=== PATIENT | female | born 1970 | race Caucasian/White ===

== ENCOUNTER 2020-02-09 12:36 | Observation (INO) | payer BC ==
[~2020-02-09] VITALS: Ht 154.9 cm; Wt 86.2 kg
[2020-02-09] MEDS ORDERED: HYDROCODONE/ACETAMINOPHEN 10/325 MG TAB ONE (13:35)
[2020-02-09] MEDS ORDERED: CEFTRIAXONE SODIUM 1 GM ONE (15:08)
[2020-02-09] MEDS: SODIUM CHLORIDE 0.9% 1000ML 1,000 ML IV SCH (15:29)
[2020-02-09] MEDS ORDERED: GLUCAGON 1MG KIT 1 MG ML IM PRN (15:30)
[2020-02-09] MEDS ORDERED: ACETAMINOPHEN 325 MG TAB PO PRN (15:30)
[2020-02-09] MEDS ORDERED: DEXTROSE 50%-WATER 50 ML DISP.SYRIN IV PRN (15:30)
[2020-02-09] MEDS ORDERED: HYDRALAZINE HCL 20 MG/ML VIAL IV PRN (15:30)
[2020-02-09] MEDS ORDERED: MORPHINE SULFATE 2 MG/ML 1ML SYG ONE ×2 (15:47→23:32)
[2020-02-09] MEDS: INSULIN HUMULIN R 100 UNIT/ML 3ML SQ SCH ×2 (16:30→21:00)
[2020-02-09] MEDS ORDERED: ACETAMINOPHEN 325 MG TAB ONE (17:31)
[2020-02-09] MEDS ORDERED: INSULIN HUMULIN R 100 UNIT/ML 3ML ONE (17:32)
[2020-02-09 17:55] LABS: BASOPHILS % (AUTO) 0.4 % (0.0-5.0); EOSINOPHILS % (AUTO) 2.3 % (0.0-8.0); HEMATOCRIT 41.4 % (36-48); LYMPHOCYTES % (AUTO) 43.8 % (21.0-51.0); MEAN CORPUSCULAR HEMOGLOBIN 29.2 pg (27.0-33.0); MEAN CORPUSCULAR HGB CONC 33.8 g/dL (32.0-36.0); MEAN CORPUSCULAR VOLUME 86.4 fL (79-99); MONOCYTES % (AUTO) 7.1 % (3.0-13.0); NEUTROPHILS % (AUTO) 46.2 % (40.0-77.0); PLATELET COUNT (AUTO) 320 K/uL (130-400); RED BLOOD CELL COUNT(AUTO) 4.79 MIL/uL (4.00-5.50); WHITE BLOOD COUNT (AUTO) 8.3 K/uL (4.8-10.8)
[2020-02-09 18:02] LABS: POTASSIUM 4.2 mmol/L (3.5-5.1)
[2020-02-09] MEDS: FAMOTIDINE 20MG TAB 20 MG TAB PO SCH (21:00)
[2020-02-09] MEDS: ZOSYN 3.375GM+NS 50ML 50 ML IV SCH (21:00)
[2020-02-10] VITALS (23 sets, daily range): BP systolic 117–158; BP diastolic 67–92
[2020-02-10 04:14] LABS: HEMATOCRIT 37.4 % (36-48); MEAN CORPUSCULAR HEMOGLOBIN 29.7 pg (27.0-33.0); MEAN CORPUSCULAR HGB CONC 34.5 g/dL (32.0-36.0); RED BLOOD CELL COUNT(AUTO) 4.35 MIL/uL (4.00-5.50); WHITE BLOOD COUNT (AUTO) 6.2 K/uL (4.8-10.8)
[2020-02-10 04:30] LABS: CREATININE 0.8 mg/dL (0.5-1.5); POTASSIUM 3.9 mmol/L (3.5-5.1)
[2020-02-10 04:40] LABS: HEMOGLOBIN A1C 8.6 % (4.0-6.0)
[2020-02-10] MEDS: SODIUM CHLORIDE 0.9% 1000ML 1,000 ML IV SCH ×2 (04:49→18:09)
[2020-02-10] MEDS: ZOSYN 3.375GM+NS 50ML 50 ML IV SCH ×3 (05:00→20:52)
[2020-02-10] MEDS: INSULIN HUMULIN R 100 UNIT/ML 3ML SQ SCH ×4 (07:30→20:52)
[2020-02-10] MEDS ORDERED: FAMOTIDINE/PF 20 MG/2 ML VIAL IV ONE (08:20)
[2020-02-10] MEDS: FAMOTIDINE 20MG TAB 20 MG TAB PO SCH ×2 (09:00→20:52)
[2020-02-10] MEDS ORDERED: ZOSYN 3.375GM+NS 50ML 50 ML IV ONE (09:03)
[2020-02-10] MEDS ORDERED: GEMF600T5 PO (09:51)
[2020-02-10] MEDS ORDERED: ATOR40TA69 PO (09:51)
[2020-02-10] MEDS ORDERED: GLIP10TA9 PO (09:51)
[2020-02-10] MEDS ORDERED: LISI10TA7 PO (09:51)
[2020-02-10] MEDS ORDERED: METF-446 PO (09:51)
--- NOTE | 2020-02-10 10:15 | NUR ---
PT HERE FORM ER.. NO ACUTE DISTRESS. CONSENT SIGNED. CARE ASSUMED BY O.R. STAFF
[2020-02-10] MEDS ORDERED: LIDOCAINE PF 2% 5ML ABBOJECT ONE (10:16)
[2020-02-10] MEDS ORDERED: MIDAZOLAM HCL 1 MG/ML 2ML VIAL ONE (10:16)
[2020-02-10] MEDS ORDERED: ONDANSETRON HCL 4 MG/2 ML VIAL ONE (10:17)
[2020-02-10] MEDS ORDERED: PROPOFOL 10 MG/ML 20ML VIAL IV ONE (10:17)
[2020-02-10] MEDS ORDERED: ROCURONIUM 10MG/1ML SYR 10 MG/ML ML ONE (10:17)
[2020-02-10] MEDS ORDERED: FENTANYL CITRATE PF 50 MCG/1 ML 2ML VIAL ONE (10:18)
[2020-02-10] MEDS ORDERED: MEPERIDINE-PF 25 MG/ML SYG ONE (11:51)
[2020-02-10] MEDS ORDERED: TRAMADOL HCL 50 MG TABLET PO ONE (14:15)
[2020-02-10] MEDS: MORPHINE SULFATE 2 MG/ML 1ML SYG IV PRN ×2 (14:56→21:05)
--- NOTE | 2020-02-10 16:44 | NUR ---
IA ATTEMPTED, NO ANSWER LEFT TEXT MESSAGE TO CALL [facility] [place] . WILL FOLLOW UP
--- NOTE | 2020-02-10 17:14 | NUR ---
TEXTED AND CALL MATTIE IF PATIENT WILL BE DISCHARGE TODAY. NO ANSWER AND PENDING CALL BACK.
--- NOTE | 2020-02-10 21:00 | NUR ---
PT REFUSED BLOOD GLUCOSE CHECK PT REFUSED TO HAVE GLUCOSE MONITORING ASSESSED. PT REPORTS THAT SHE HAS NOT EATEN AND DOES NOT WANT HER "SUGARS CHECKED". OFFERED PT A SANDWICH TRAY, PT DECLINED TRAY. WILL ATTEMPT TO CONTINUE TO OFFER SNACKS AND CHECK BLOOD SUGAR IN AM.
[2020-02-11 00:27] VITALS: BP 128/74
[2020-02-11] MEDS: MORPHINE SULFATE 2 MG/ML 1ML SYG IV PRN (03:15)
[2020-02-11 04:09] VITALS: BP 146/68
[2020-02-11] MEDS: ZOSYN 3.375GM+NS 50ML 50 ML IV SCH (05:35)
--- NOTE | 2020-02-11 05:38 | NUR ---
PT REFUSED GLUCOSE CHECK CHECK REFUSED. PT STATES THAT SHE HAS NOT EATEN AND SHE DOES NOT WANT HER GLUCOSE TO BE CHECKED. PT STATES "WHAT'S THE POINT OF CHECKING IT?" INFORMED PT THAT HER GLUCOSE CAN DROP, SO IT IS IMPORTANT THAT WE ASSESS IT. PT CONTINUES TO REFUSE THAT THE TEACHING "MAKES NO SENSE", HER SUGARS "CAN NOT DROP IF I HAVE NOT EATEN". FURTHER TEACHING IS REQUIRED.
[2020-02-11 07:30] VITALS: BP 134/78
[2020-02-11] MEDS: INSULIN HUMULIN R 100 UNIT/ML 3ML SQ SCH (07:30)
[2020-02-11 11:00] VITALS: BP 140/71
[2020-02-11] MEDS ORDERED: TRAM50TA2 PO (12:38)
--- NOTE | 2020-02-11 13:42 | NUR ---
NOTIFIED DR. HONEYCUTT THAT THE PATIENT WANTED TO TALK TO HIM. DR. HONEYCUTT CALL THE PATIENT AND SPOKE TO HER ABOUT THE TREATMENT PLAN.
== END 2020-02-11 15:15 | disposition home or self-care (01) ==
LOC: EDH 12:36 → EDHIP 15:29 → 3BH 20:53 → EDHIP 22:08 → 3BH 02-10 12:41
PROVIDERS: ADMIT Hospitalist; ATTEND Hospitalist
DX: S61.211A Laceration without foreign body of left index finger without damage to nail, initial encounter (principal); Z20.828 Contact with and (suspected) exposure to other viral communicable diseases; E11.9 Type 2 diabetes mellitus without complications; Z87.891 Personal history of nicotine dependence; Z90.49 Acquired absence of other specified parts of digestive tract; Z98.51 Tubal ligation status; W26.0XXA Contact with knife, initial encounter; Y93.89 Activity, other specified; Y92.098 Other place in other non-institutional residence as the place of occurrence of the external cause; Y99.8 Other external cause status
CPT/HCPCS: 26370; 36415 ×2; 73140; 80048 ×2; 82948 ×3; 83036; 85025; 85027; 87426; 96365; 96366 ×2; 96376; 99284; A4215; A4221; A4222; A4223; A4663; A4930; G0168; G0378 ×10; J0696; J1815; J2001; J2175; J2250; J2405; J2543 ×5; J2704; J3010; J3490; J7030; U0003

== ENCOUNTER 2020-09-02 14:40 | Emergency (ER) | payer BC ==
[~2020-09-02 14:40] MED LIST: ATOR40TA69 PO; GEMF600T89 PO; GLIP10TA9 PO; LISI10TA24 PO; METF-446 PO; TRAM50TA2 PO
[2020-09-02 15:16] LABS: BASOPHILS % (AUTO) 0.4 % (0.0-5.0); EOSINOPHILS % (AUTO) 1.5 % (0.0-8.0); HEMATOCRIT 41.6 % (36-48); LYMPHOCYTES % (AUTO) 28.1 % (21.0-51.0); MEAN CORPUSCULAR HEMOGLOBIN 29.5 pg (27.0-33.0); MEAN CORPUSCULAR HGB CONC 34.4 g/dL (32.0-36.0); MEAN CORPUSCULAR VOLUME 85.8 fL (79-99); MONOCYTES % (AUTO) 5.4 % (3.0-13.0); NEUTROPHILS % (AUTO) 64.3 % (40.0-77.0); PLATELET COUNT (AUTO) 339 K/uL (130-400); RED BLOOD CELL COUNT(AUTO) 4.85 MIL/uL (4.00-5.50); RED CELL DISTRIBUTION WIDTH 12.2 % (11.0-15.5)
[2020-09-02 15:25] LABS: APPEARANCE,URINE Clear (CLEAR); BILIRUBIN,URINE Negative (NEGATIVE); COLOR,URINE Yellow (YELLOW); GLUCOSE, URINE (UA) >=1000 mg/dL (NEGATIVE); KETONES,URINE Negative (NEGATIVE); LEUKOCYTE ESTERASE ,URINE Trace (NEGATIVE); NITRATE,URINE Negative (NEGATIVE); OCCULT BLOOD,URINE Negative (NEGATIVE); PH,URINE 5.5 (5.0-8.0); PROTEIN,URINE Negative (NEGATIVE); UROBILINOGEN,URINE 0.2 mg/dL (0.2-1.0)
[2020-09-02 15:31] LABS: ALBUMIN 4.3 g/dL (3.5-5.0); BILIRUBIN,TOTAL 0.3 mg/dL (0.2-1.0); CREATININE 1.1 mg/dL (0.5-1.5); POTASSIUM 4.8 mmol/L (3.5-5.1); TOTAL PROTEIN, SERUM 7.6 g/dL (6.0-8.3)
[2020-09-02 15:42] LABS: RBC,URINE 0-1 /HPF (0-1)
[2020-09-02 15:43] LABS: BACTERIA,URINE Rare /HPF (None Seen); SQUAMOUS EPITHELIAL CELL,UR Few /HPF (0-2); YEAST,URINE BUDDING Rare /HPF (None Seen)
[2020-09-02] MEDS ORDERED: SODIUM CHLORIDE 0.9% 1000ML 1,000 ML IV ONE (16:02)
[2020-09-02] MEDS ORDERED: INSULIN HUMULIN R 100 UNIT/ML 3ML ONE (16:03)
== END 2020-09-02 17:45 | disposition home or self-care (01) ==
LOC: EDH 14:40
DX: E11.65 Type 2 diabetes mellitus with hyperglycemia (principal); E86.0 Dehydration; E78.00 Pure hypercholesterolemia, unspecified; Z90.49 Acquired absence of other specified parts of digestive tract; Z98.890 Other specified postprocedural states
CPT/HCPCS: 36415; 80053; 81001; 82948; 85025; 96361; 96374; 99284; J1815; J7030